=== PATIENT | male | born 2000 ===

== ENCOUNTER 2021-03-26 14:16 | Emergency (ER) | payer OTHER ==
[2021-03-26 14:55] LABS: HEMOGLOBIN 16.9 gm/dl (14.0-17.5); RED BLOOD COUNT 5.3 M/UL (4.20-5.50); WHITE BLOOD COUNT 4.8 K/UL (4.5-11.0)
[2021-03-26 16:08] LABS: BUN/CREATININE RATIO 8 (0-10)
== END 2021-03-26 17:41 | disposition home or self-care (01) ==
LOC: ER1 14:16
PROVIDERS: Physician Assistant Medical
DX: R10.9 Unspecified abdominal pain (principal); R11.2 Nausea with vomiting, unspecified; Z20.822 Contact with and (suspected) exposure to COVID-19
CPT/HCPCS: 71045; 80053; 81001; 83690; 85025; 99284; U0002

== ENCOUNTER 2021-04-30 16:25 | Inpatient (IN) | payer OTHER ==
[~2021-04-30] VITALS: Ht 185.4 cm; Wt 59.1 kg
[2021-04-30 17:16] LABS: HEMOGLOBIN 16.2 gm/dl (14.0-17.5); RED BLOOD COUNT 5.17 M/UL (4.20-5.50); WHITE BLOOD COUNT 4.5 K/UL (4.5-11.0)
[2021-04-30 17:50] LABS: BUN/CREATININE RATIO 9 (0-10)
[2021-04-30] MEDS ORDERED: DIVALPROEX SOD500 MG PO (23:14)
[2021-04-30] MEDS ORDERED: OLANZAPINE10 MG PO (23:15)
[2021-04-30] MEDS ORDERED: MINIPRESS CAP 11 MG PO (23:28)
[2021-05-01 04:39] LABS: HEMOGLOBIN 14.7 gm/dl (14.0-17.5); RED BLOOD COUNT 4.68 M/UL (4.20-5.50); WHITE BLOOD COUNT 5.6 K/UL (4.5-11.0)
[2021-05-01 04:57] LABS: BUN/CREATININE RATIO 9 (0-10)
[2021-05-02 03:43] LABS: BUN/CREATININE RATIO 11 (0-10)
--- NOTE | 2021-05-02 13:30 | NUR ---
REPORT GIVEN TO BECKY RODRIGUES ON MED SURG 4 WITH ALL QUESTIONS ANSWERED
[2021-05-03 06:09] LABS: BUN/CREATININE RATIO 10 (0-10)
== END 2021-05-04 19:26 | DRG 918 ==
LOC: ER1 16:25 → CDU 17:55 → MED SURG 4 17:55 → PROG CARE 20:10 → MED SURG 4 05-02 14:03
PROVIDERS: Family Medicine; ADMIT Internal Medicine
DX: T42.6X2A Poisoning by other antiepileptic and sedative-hypnotic drugs, intentional self-harm, initial encounter (principal); F31.9 Bipolar disorder, unspecified; F43.10 Post-traumatic stress disorder, unspecified; Z20.822 Contact with and (suspected) exposure to COVID-19; G40.909 Epilepsy, unspecified, not intractable, without status epilepticus; F17.220 Nicotine dependence, chewing tobacco, uncomplicated; Z81.1 Family history of alcohol abuse and dependence; Y92.9 Unspecified place or not applicable
CPT/HCPCS: 36415; 80048; 80053; 80307; 82140; 85025; 93005; 99285; G0480; J1650; J2405; U0002